=== PATIENT | male | born 1960 | race African-American/Black ===

== ENCOUNTER 2019-07-04 16:43 | Emergency (ER) | payer MEDICARE, MEDICAID ==
[~2019-07-04] VITALS: Ht 177.8 cm; Wt 97.0 kg
[~2019-07-04 16:43] MED LIST: NAPROXEN
[2019-07-04 17:09] VITALS: BP 161/85
[2019-07-04] MEDS ORDERED: KETOROLAC 60MG/2ML VIAL IM ONE (18:00)
== END 2019-07-04 18:12 | disposition home or self-care (01) ==
LOC: ER 16:43
DX: M54.2 Cervicalgia (principal); M25.512 Pain in left shoulder; S10.93XA Contusion of unspecified part of neck, initial encounter; V49.40XA Driver injured in collision with unspecified motor vehicles in traffic accident, initial encounter; Y93.89 Activity, other specified; Y92.488 Other paved roadways as the place of occurrence of the external cause
CPT/HCPCS: 96372; 99283; J1885

== ENCOUNTER 2020-11-26 14:48 | Emergency (ER) | payer OTHER, MEDICAID ==
[~2020-11-26] VITALS: Ht 175.3 cm; Wt 75.0 kg
[2020-11-26] MEDS ORDERED: ACETAMINOPHEN 325MG TABLET PO ONE (16:00)
[2020-11-26 16:36] LABS: BASOPHILS % 0.9 % (0.0-2.0); EOSINOPHILS % 2.7 % (0.0-5.0); HEMATOCRIT. 40.5 % (42.0-52.0); HEMOGLOBIN. 13.8 g/dL (14.0-18.0); MEAN CORPUSCULAR HEMOGLOBIN 30.6 pg (28.0-32.0); MEAN CORPUSCULAR VOLUME 89.9 fL (80.0-94.0); MEAN PLATELET VOLUME 8.2 fl (7.4-10.4); MONOCYTES % 12.2 % (2.0-8.0); NEUTROPHILS % 42.2 % (40.0-76.0); PLATELET 184 x1000/uL (130-400); RED CELL DISTRIBUTION WIDTH 14.6 % (11.6-14.6)
[2020-11-26 16:40] LABS: CHLORIDE 108 mEq/L (98-107)
[2020-11-26 16:51] LABS: PROTHROMBIN TIME 48.1 sec (9.6-11.0)
[2020-11-26 16:56] LABS: INR 5.1
[2020-11-26] MEDS ORDERED: PHYTONADIONE 10 MG/10 ML ORALSYR PO ONE (18:30)
[2020-11-26] MEDS ORDERED: IOHEXOL-300 100 ML BOTTLE ONE (19:20)
[2020-11-26 20:54] VITALS: BP 140/92
== END 2020-11-26 20:52 | disposition home or self-care (01) ==
LOC: ER 14:48
DX: S13.4XXA Sprain of ligaments of cervical spine, initial encounter (principal); M54.9 Dorsalgia, unspecified; S30.1XXA Contusion of abdominal wall, initial encounter; R26.2 Difficulty in walking, not elsewhere classified; R79.1 Abnormal coagulation profile; V49.49XA Driver injured in collision with other motor vehicles in traffic accident, initial encounter; Y93.89 Activity, other specified; Y92.488 Other paved roadways as the place of occurrence of the external cause; I48.91 Unspecified atrial fibrillation; Z86.718 Personal history of other venous thrombosis and embolism; Z98.1 Arthrodesis status
CPT/HCPCS: 36415; 71260; 72040; 74177; 80053; 83690; 85025; 85610; 99285; J3430; Q9967